=== PATIENT | female | born 1975 | race Caucasian/White ===

== ENCOUNTER 2022-10-12 10:34 | Outpatient (CLI) | payer OTHER | END 2022-10-12 10:38 | disposition home or self-care (01) | LOC: SONOGRAMA 10:34 | PROVIDERS: ATTEND Pathology Anatomic Pathology | DX: D34 Benign neoplasm of thyroid gland (principal); E06.3 Autoimmune thyroiditis; E04.2 Nontoxic multinodular goiter ==

== ENCOUNTER 2022-11-11 10:31 | Outpatient (CLI) | payer OTHER | END 2022-11-11 10:44 | disposition home or self-care (01) | LOC: MAMO-SONO 10:31 | PROVIDERS: ATTEND Internal Medicine | DX: Z12.31 Encounter for screening mammogram for malignant neoplasm of breast (principal); Z80.3 Family history of malignant neoplasm of breast ==

== ENCOUNTER 2023-01-04 08:40 | Outpatient (CLI) | payer OTHER | END 2023-01-04 09:05 | disposition home or self-care (01) | LOC: TOM 08:40 | PROVIDERS: ATTEND Internal Medicine | DX: R05.8 Other specified cough (principal); R06.02 Shortness of breath ==

== ENCOUNTER 2023-03-10 09:57 | Outpatient (CLI) | payer OTHER | END 2023-03-10 10:04 | disposition home or self-care (01) | LOC: SONOGRAMA 09:57 | PROVIDERS: ATTEND Obstetrics & Gynecology Gynecology | DX: R10.2 Pelvic and perineal pain (principal); D25.0 Submucous leiomyoma of uterus ==

== ENCOUNTER → 2025-03-22 07:41 | Outpatient (CLI) | payer OTHER | END | disposition home or self-care (01) | LOC: NUCLEAR 07:41 | PROVIDERS: ATTEND Internal Medicine | DX: D50.0 Iron deficiency anemia secondary to blood loss (chronic) (principal); D50.1 Sideropenic dysphagia ==

== ENCOUNTER 2025-05-16 14:29 | Outpatient (CLI) | payer OTHER | END 2025-05-16 14:39 | disposition home or self-care (01) | LOC: RAD 14:29 | PROVIDERS: ATTEND Surgery | DX: C50.811 Malignant neoplasm of overlapping sites of right female breast (principal); I10 Essential (primary) hypertension ==

== ENCOUNTER 2025-08-17 07:00 | Day surgery (SDC) | payer OTHER ==
[2025-08-16 13:23] VITALS: BP 156/89
[~2025-08-17] VITALS: Ht 157.5 cm; Wt 59.9 kg
[~2025-08-17 07:00] MED LIST: ANASTROZOLE1 MG PO; CLINDAMYCIN PHOSPHATE 150 MG/ML (900mg) ONE; SYNTHROID125 MCG PO; ZOLADEX3.6 MG SQ
[2025-08-17] MEDS ORDERED: GENTAMICIN SULFATE 40 MG/ML VIAL ONE (07:14)
[2025-08-17] MEDS ORDERED: POVIDONE-IODINE 118 ML BOTT TOP ONE (07:15)
[2025-08-17] MEDS ORDERED: POVIDONE-IODINE SCRUB 118 ML BOTT TOP ONE (07:15)
[2025-08-17] MEDS ORDERED: TRANEXAMIC ACID 100MG/1ML (1000MG) AMPUL ONE (07:16)
[2025-08-17] MEDS ORDERED: CEFAZOLIN SODIUM 1,000 MG VIAL ONE (07:16)
[2025-08-17] MEDS ORDERED: SUGAMMADEX SODIUM 200 MG/2 ML VIAL IV ONE (09:28)
[2025-08-17] MEDS ORDERED: ENALAPRILAT DIHYDRATE 1.25 MG/ML VIAL IV ONE (09:29)
[2025-08-17] MEDS ORDERED: MORPHINE SULFATE 4 MG/ML VIAL IV PRN (13:00)
[2025-08-17] MEDS ORDERED: ONDANSETRON HCL 2 MG/ML VIAL IV PRN (13:00)
== END 2025-08-17 14:00 | disposition home or self-care (01) ==
LOC: CIR.AMB 07:00
PROVIDERS: ATTEND Plastic Surgery
DX: D05.12 Intraductal carcinoma in situ of left breast (principal); Z90.13 Acquired absence of bilateral breasts and nipples